=== PATIENT | male | born 1965 | race Caucasian/White ===

== ENCOUNTER 2018-04-14 08:14 | Day surgery (SDC) | payer OTHER ==
[2018-04-13 12:44] VITALS: BMI 23.7
[2018-04-14] MEDS ORDERED: ONDANSETRON 4 MG/2 ML VIAL IVPUSH PRN (09:11)
[2018-04-14] MEDS ORDERED: PROMETHAZINE HCL 25 MG/1 ML VIAL IVPUSH PRN (09:11)
--- NOTE | 2018-04-14 09:12 | HP ---
History & Physical Update - History History: No Change - Physical Physical: No Change - Assessment Assessment: No Change - Plan Plan: No Change (Cystic mass in the midline, of the neck, suggestive of thyroglossal duct cyst, Plan : excision of thyroglossal duct cyst.)
[2018-04-14] MEDS ORDERED: LACTATED RINGERS SOLUTION 1,000 ML IV SCH (09:15)
[2018-04-14] MEDS ORDERED: MIDAZOLAM HCL 2 MG/2 ML SINGLE DOSE VIAL ONE (09:22)
[2018-04-14] MEDS ORDERED: ROCURONIUM BROMIDE 50 MG/5 ML VIAL ONE (09:22)
[2018-04-14] MEDS ORDERED: LIDOCAINE HCL/PF 2% SDV 5ML VIAL ONE (09:23)
[2018-04-14] MEDS ORDERED: PROPOFOL 20 ML ONE (09:23)
[2018-04-14] MEDS ORDERED: ceFAZolin SODIUM 1 GM VIAL ONE (09:46)
[2018-04-14] MEDS ORDERED: DEXAMETHASONE SOD PHOSPHATE 4 MG/1 ML VIAL ONE (09:48)
[2018-04-14] MEDS ORDERED: ceFAZolin SODIUM 1 GM VIAL IVPB ONE (09:48)
[2018-04-14] MEDS ORDERED: ACETAMINOPHEN INJECTION 100 ML IVPB ONE (10:15)
[2018-04-14] MEDS ORDERED: BUPIVACAINE HCL/PF 0.5% (5MG/ML) 10 ML VIAL ONE (10:42)
[2018-04-14] MEDS ORDERED: KETOROLAC TROMETHAMINE 30 MG/1 ML VIAL ONE (10:44)
[2018-04-14] MEDS ORDERED: GLYCOPYRROLATE 0.2 MG/1 ML VIAL ONE (10:45)
[2018-04-14] MEDS ORDERED: BUPIVACAINE HCL/PF 0.5% (5MG/ML) 10 ML VIAL IJ ONE (10:52)
--- NOTE | 2018-04-14 11:22 | OP ---
Operative Note - Note: Operative Date: 04/14/18 Pre-Operative Diagnosis: Thyroglossal duct cyst. Operation: Excision of thyroglossal duct cyst , excision of body of hyoid bone. Findings: Thyroglossal duct cyst. Surgeon: Luisa Gray Anesthesia: General Specimens Removed: Thyroglossal duct cyst Estimated Blood Loss (mls): 10 Operative Report Dictated: Yes
--- NOTE | 2018-04-14 12:41 | OP ---
DATE OF OPERATION: 04/14/2018 PREOPERATIVE DIAGNOSIS: Thyroglossal duct cyst. POSTOPERATIVE DIAGNOSIS: Thyroglossal duct cyst. OPERATIVE PROCEDURE: Excision of thyroglossal duct cyst, and excision of the body of the hyoid bone. SURGEON: Alexandra Hou MD ANESTHESIA: General anesthesia. OPERATIVE DESCRIPTION: This 52-year-old man had swelling in the upper part of the neck in the midline. There was a cystic 4-5-cm diameter mass suggestive of thyroglossal duct cyst. Patient was brought in for excision of thyroglossal duct cyst. Patient had thyroid scan which showed normal thyroid tissue in the normal location. Consent was obtained. Risks, benefits, and complications were discussed with the patient. The patient was given general anesthesia via endotracheal tube. The neck was placed in extension, painted and draped. Horizontal skin incision was made overlying the mass. This was deepened into the skin, subcutaneous tissue, and the platysma muscle. Superior and inferior skin flaps were then raised between the platysma and the deep cervical fascia superiorly all the way to the base of the tongue or chin and inferiorly below the lesion. The strap muscles were then divided in the midline vertically from the hyoid bone to below the lesion and superiorly between the mylohyoid muscles. The mass was then clearly identified. This was carefully from the rest of the structures inferiorly. It was connected to the pyramidal lobe of the thyroid. This was divided between clamps and ligated. The mass was sitting on the thyroid notch. This was carefully from the thyroid cartilage and carried in superiorly towards the base of the tongue. It entered beneath the body of the hyoid bone. The body of the hyoid bone was then divided using the bone rongeur. First, the periosteum of the hyoid bone was divided in a horizontal fashion. The periosteum was then circumferentially , and the body of the hyoid bone was divided on either side of the midline using the bone rongeur. This carried this tract all the way down to the base of the tongue. It was then divided at the base of the tongue. Specimen consisting of the body of the hyoid bone, the thyroglossal duct cyst connected to the pyramidal lobe, as well as the tract was completely excised and sent to Pathology. The base of the tongue was then suture ligated with 0 Vicryl sutures. The wound was thoroughly irrigated with normal saline. Hemostasis was satisfactory. Strap muscles were approximated with interrupted 3-0 Vicryl sutures. Platysma was approximated with buried interrupted 3-0 Vicryl sutures. Skin was approximated with continuous 4-0 Biosyn sutures in a running subcuticular fashion. Then, 0.5% Marcaine with epinephrine was injected into the wound. Patient tolerated the procedure well, was extubated and sent to the recovery room in satisfactory and stable condition. Estimated blood loss was less than 10 mL. Hao [id number] cc: Chau Oneal MD MTDD
[2018-04-14 12:42] VITALS: TEMP 97.8
[2018-04-14 15:21] VITALS: BP 135/89; PULSE 57
--- NOTE | 2018-04-18 16:37 | PATH ---
Surgical Pathology Report Patient Name: KELI THOMPSON [facility]. Rec. #: [id number] /Age/Gender: 1965 (Age: 52) / M Account: [id number] Location: [facility] Taken: 04/14/2018 Received: 04/14/2018 Reported: 04/18/2018 Physicians: Natacha Gray M.D. Specimen(s) Received A: HYOID BONE B: THYROGLOSSAL DUCT CYST Clinical History Thyroglossal cyst Final Diagnosis A. HYOID BONE, RESECTION: FRAGMENT OF BONE WITH HEMATOPOIETIC MARROW. B. THYROGLOSSAL CYST, EXCISION: CONSISTENT WITH THYROGLOSSAL CYST. UNREMARKABLE THYROID TISSUE ADJACENT TO THE CYST PRESENT. SEPARATE FRAGMENT OF BONE WITH HEMATOPOIETIC MARROW. Electronically Signed Luis Martin M.D. Gross Description A. Received in formalin labeled "hyoid bone," is a 1.5 x 0.6 x 0.3 cm cooper portion of bone. The specimen is submitted in toto in one cassette, following decalcification. B. Received fresh labeled "thyroglossal cyst," is a 4.0 x 1.5 x 1.0 cm cooper-brown, unoriented portion of soft tissue with a 1.3 x 0.7 x 0.3 cm attached portion of bone. The soft tissue is inked blue and serially sectioned. Sectioning reveals a cyst lumen. The specimen is entirely submitted in 5 cassettes as follows: [id number] and sequentially submitted cyst; 5-bone, following decalcification. 04/14/201804/14/2018
== END 2018-04-14 15:23 | disposition home or self-care (01) ==
LOC: JASU-SURG 08:14
PROVIDERS: ATTEND Specialist
PROC: 0WB60ZX Excision of Neck, Open Approach, Diagnostic (ICD-10-PCS; principal; 2018-04-14 09:30)
DX: Q89.2 Congenital malformations of other endocrine glands (principal); E11.9 Type 2 diabetes mellitus without complications; Z79.84 Long term (current) use of oral hypoglycemic drugs
CPT/HCPCS: 82962; 88304-TC; 88311-TC; 94760; J0131